=== PATIENT | male | born 2000 | race Caucasian/White ===

== ENCOUNTER → 2023-04-21 | Outpatient (CLI) | payer OTHER, SELFPAY ==
--- NOTE | 2023-04-21 09:29 | RAD_ITS ---
STUDY: X-RAY - LEFT KNEE REASON FOR EXAM: Male, 22 years old. ARTHRITIS TECHNIQUE: 3 view(s) of the knee. COMPARISON: None. FINDINGS: Normal visualized distal femur. Normal visualized proximal tibia and fibula. Normal proximal tibiofibular articulation. Normal medial femorotibial compartment. Normal lateral femorotibial compartment. Normal patellofemoral articulation. The soft tissue structures are unremarkable. RAD/Knee 3 Views IMPRESSION: Normal x-ray examination of the knee. Electronically Signed: Alok Alvarado MD at 10:46 EST ,
--- NOTE | 2023-04-21 09:30 | RAD_ITS ---
STUDY: X-RAY - RIGHT SHOULDER REASON FOR EXAM: Male, 22 years old. ARTHRITIS TECHNIQUE: 2 view(s) of the shoulder. COMPARISON: None. FINDINGS: Normal glenohumeral articulation. Normal acromioclavicular joint. Normal acromion. Normal humeral head and visualized proximal humerus. The soft tissue structures are unremarkable. Normal visualized pulmonary apex. RAD/Shoulder min 2 Views IMPRESSION: Normal x-ray examination of the shoulder. Electronically Signed: Alok Alvarado MD at 10:48 EST ,
--- NOTE | 2023-04-21 09:30 | RAD_ITS ---
STUDY: X-RAY - RIGHT KNEE REASON FOR EXAM: Male, 22 years old. ARTHRITIS TECHNIQUE: 3 view(s) of the knee. COMPARISON: None. FINDINGS: Normal visualized distal femur. Normal visualized proximal tibia and fibula. Normal proximal tibiofibular articulation. Normal medial femorotibial compartment. Normal lateral femorotibial compartment. Normal patellofemoral articulation. The soft tissue structures are unremarkable. RAD/Knee 3 Views IMPRESSION: Normal x-ray examination of the knee. Electronically Signed: Alok Alvarado MD at 10:47 EST ,
--- NOTE | 2023-04-21 09:32 | RAD_ITS ---
STUDY: X-RAY - LUMBAR SPINE REASON FOR EXAM: Male, 22 years old. ARTHRITIS TECHNIQUE: 3 view(s) of the lumbar spine were obtained. COMPARISON: None FINDINGS: Normal lumbar lordosis. There is no substantial scoliosis. There is a normal alignment of the vertebrae. Normal vertebral bodies and endplates. Normal disc space heights. The soft tissue structures are unremarkable. RAD/Lumbar Spine 2 or 3 Views IMPRESSION: Normal x-ray examination of the lumbar spine. Electronically Signed: Alok Alvarado MD at 10:47 EST ,
--- NOTE | 2023-04-21 09:32 | RAD_ITS ---
STUDY: X-RAY - CERVICAL SPINE REASON FOR EXAM: Male, 22 years old. ARTHRITIS TECHNIQUE: 3 view(s) of the cervical spine were obtained. COMPARISON: None FINDINGS: Normal anterior atlantoaxial articulation. Normal odontoid process. There is straightening of the normal cervical lordosis. Normal vertebral bodies and endplates. Normal disc space heights. Normal visualized intervertebral neuroforamina. The soft tissue structures are unremarkable. RAD/Cerv Spine 2 or 3 Views IMPRESSION: There is straightening of the normal cervical lordosis. Electronically Signed: Alok Alvarado MD at 10:45 EST ,
--- NOTE | 2023-04-21 09:35 | RAD_ITS ---
STUDY: X-RAY - LEFT SHOULDER REASON FOR EXAM: Male, 22 years old. ARTHRITIS TECHNIQUE: 2 view(s) of the shoulder. COMPARISON: None. FINDINGS: Normal glenohumeral articulation. Normal acromioclavicular joint. Normal acromion. Normal humeral head and visualized proximal humerus. The soft tissue structures are unremarkable. Normal visualized pulmonary apex. RAD/Shoulder min 2 Views IMPRESSION: Normal x-ray examination of the shoulder. Electronically Signed: Alok Alvarado MD at 10:48 EST ,
== END | disposition home or self-care (01) ==
PROVIDERS: PCP Family Medicine; Referring Provider Chiropractor; Visit Provider Chiropractor
DX: M13.80 Other specified arthritis, unspecified site (principal); E29.1 Testicular hypofunction
CPT/HCPCS: 36415; 72040; 72100; 73030; 73562; 84403